=== PATIENT | female | born 1975 | race Caucasian/White ===

== ENCOUNTER 2017-02-14 13:44 | Emergency (ER) | payer OTHER ==
--- NOTE | ~2017-02-14 | CR172 ---
[facility]. [facility] A Service of [facility] & [facility] RADIOLOGY TEXT RESULTS PATIENT: LANDON CASTRO LOCATION: SED : 73 UNIT #: [id number] AGE: [address]: Adolfo Dwyer MD SEX: F ORDER DR: [id number] [place] [id number] E MR#: [id number] Acc #: [id number] NAME: LANDON CASTRO : 1975 SEX: F STUDY DATE/TIME: 02/14/2017 13:24 UNIT: SED ROOM: STUDY DESCRIPTION: CR Knee 3 Views Lt Attending Physician: Adolfo Dwyer M.D. Referring Physician: Adolfo Dwyer M.D. Ordering Physician: Adolfo Dwyer M.D. Primary Care Physician: Gudelia Foster M.D. MEDICAL IMAGING REPORT This report is preliminary unless electronic signature is present. EXAM Left knee 02/14/2017 INDICATIONS Knee pain after fall 2 days ago. 3 views of the left knee were obtained. COMPARISON STUDIES No comparison. FINDINGS There is no fracture or malalignment. There is no joint effusion. The soft tissues are unremarkable. IMPRESSION Negative left knee. Dictated by... Julián Meyer Jr., M.D. THIS IS AN ELECTRONICALLY VERIFIED REPORT Julián Meyer Jr., M.D. at 02/14/2017 4:31 PM BLAKE/jay TD: 02/14/2017 15:08 JOB #: [id number] MEDICAL IMAGING REPORT Page 1 of 1
== END 2017-02-14 14:08 | disposition home or self-care (01) ==
LOC: SED 13:44
DX: S80.02XA Contusion of left knee, initial encounter (principal); F17.200 Nicotine dependence, unspecified, uncomplicated; W19.XXXA Unspecified fall, initial encounter; Y92.009 Unspecified place in unspecified non-institutional (private) residence as the place of occurrence of the external cause
CPT/HCPCS: 73562; 99283

== ENCOUNTER 2017-05-14 12:24 | Emergency (ER) | payer OTHER ==
--- NOTE | ~2017-05-14 | CR141 ---
[facility]. [facility] [place] A Service of [facility] & [facility] / [facility] RADIOLOGY TEXT RESULTS PATIENT: LANDON CASTRO LOCATION: SED : 73 UNIT #: [id number] AGE: [address]: JEANNIE DEWITT SEX: F ORDER DR: [id number] [place] [id number] E MR#: [id number] Acc #: [id number] NAME: LANDON CASTRO : 1975 SEX: F STUDY DATE/TIME: 05/14/2017 13:15 UNIT: SED ROOM: STUDY DESCRIPTION: CR Hand Min 3 Views Lt Attending Physician: Jeannie Dewitt Ordering Physician: Jeannie Dewitt Primary Care Physician: Primary Care Physician No MEDICAL IMAGING REPORT This report is preliminary unless electronic signature is present. EXAM 3 views left hand. INDICATION Pain in the mid hand radiating onto the wrist after a fall on outstretched hand last night. FINDINGS AP, lateral, and oblique projections of the hand show good mineralization with normal carpal, metacarpal, and phalangeal anatomy without indication of fracture, dislocation, or soft tissue radiopaque foreign body. IMPRESSION Negative. Dictated by... Carolina Cuevas M.D. THIS IS AN ELECTRONICALLY VERIFIED REPORT Carolina Cuevas M.D. at 05/16/2017 5:14 PM AFF/cs TD: 05/14/2017 19:11 JOB #: [id number] MEDICAL IMAGING REPORT Page 1 of 1
[2017-05-14] MEDS ORDERED: NO MEDICATIONS (12:26)
== END 2017-05-14 14:37 | disposition home or self-care (01) ==
LOC: SED 12:24
DX: S60.222A Contusion of left hand, initial encounter (principal); F17.210 Nicotine dependence, cigarettes, uncomplicated; G56.03 Carpal tunnel syndrome, bilateral upper limbs; W19.XXXA Unspecified fall, initial encounter; Y92.009 Unspecified place in unspecified non-institutional (private) residence as the place of occurrence of the external cause
CPT/HCPCS: 29125; 29260; 73130; 99283